=== PATIENT | female | born 1985 | race Caucasian/White ===

== ENCOUNTER 2018-06-03 21:02 | Emergency (ER) | payer BC, OTHER ==
[~2018-06-03] VITALS: Ht 172.7 cm; Wt 83.9 kg
[~2018-06-03 21:02] MED LIST: ADDERALL; CITA-105 PO; CITALOPRAM
[2018-06-03 22:35] LABS: BILIRUBIN,URINE NEGATIVE (NEGATIVE); CLARITY,URINE CLEAR; COLOR,URINE YELLOW; GLUCOSE, URINE (UA) NEGATIVE (NEGATIVE); KETONES,URINE NEGATIVE (NEGATIVE); LEUKOCYTE ESTERASE ,URINE 1+ (NEGATIVE); NITRITE,URINE NEGATIVE (NEGATIVE); PH,URINE 5 (5-9); PROTEIN,URINE 1+ (NEGATIVE); UROBILINOGEN,URINE NORMAL (NORMAL)
[2018-06-03 22:36] LABS: BACTERIA,URINE NEGATIVE /HPF
--- NOTE | 2018-06-03 23:14 | ED Headache ---
General Chief Complaint: Head/Cervical Problems Stated Complaint: HEADACHE Nursing Triage Note: PT AMB TO ROOM #9 W/O DIFFICULTY. A&OX4. C/O FRONTAL LOBE HEADACHE. PT REPORTS HEADACHE BEGAN APPROX 0300 THIS MORNING. REPORTS TO HAVE TAKEN TYELNOL AND IBUPROFEN FOR PAIN WITH NO RELIEF. REPORTS PHOTOPHOBIA AND PRESSURE BEHIND EYES. Nursing Sepsis Screen: No Definite Risk Source: patient, other Exam Limitations: no limitations History of Present Illness Date Seen by Provider: Jun 03, 2018 Time Seen by Provider: 22:57 Initial Comments Patient presents to ER by private conveyance with chief complaint of a frontal headache bilateral throbbing without photophobia or phonophobia. She does not history of migraines but she does have a history of headaches although this one has lasted since about 3 AM. She took some Tylenol this morning and then 600 mg of ibuprofen this afternoon and just was not broke. She's been trying to sleep it off. She does not have any discharge from the nose. Ears fevers chills cough or sore throat diarrhea or abdominal pain. She does have some nausea but no vomiting. She has a IUD. Allergies and Home Medications Allergies Coded Allergies: No Known Drug Allergies (Unverified , 06/03/18) Home Medications Citalopram Hydrobromide 40 Mg Tablet, 40 MG PO DAILY Prescribed by: ROBYN DESIR on 06/18/12 1105 [Adderall] , ?MG BID, (Reported) [Citalopram] , ?MG DAILY, (Reported) Patient Home Medication List Home Medication List Reviewed: Yes Review of Systems Review of Systems Constitutional: No chills, No diaphoresis Eyes: Denies Blindness, Denies Blurred Vision Ears, Nose, Mouth, Throat: denies ear pain, denies ear discharge Respiratory: No cough, No dyspnea on exertion Cardiovascular: No chest pain, No Hx of Intervention Past Tdvjtie-Nmifra-Uiatuy Hx Patient Social History Alcohol Use: Rarely Uses Number of Drinks Today: 2 Alcohol Beverage of Choice: Beer, Vodka Recreational Drug Use: No Smoking Status: Former Smoker Type Used: Cigarettes Former Smoker, Quit: Feb 15, 2014 2nd Hand Smoke Exposure: No Recent Foreign Travel: No Contact w/Someone Who Travel: No Recent Infectious Disease Expo: No Seasonal Allergies Seasonal Allergies: Yes Past Medical History Surgeries: Yes Respiratory: No Cardiac: No Neurological: No Genitourinary: No Gastrointestinal: No Musculoskeletal: No Endocrine: No HEENT: No Cancer: No Psychosocial: Yes ADD/ADHD, Depression Integumentary: No Blood Disorders: No Physical Exam Vital Signs Vital Signs - First Documented 06/03/18 21:48 Temp 98.0 Pulse 79 Resp 16 B/P (MAP) 120/84 (96) Pulse Ox 98 O2 Delivery Room Air Capillary Refill : Less Than 3 Seconds Height, Weight, BMI Height: 5'8.00" Weight: 185lbs. oz. 83.316109ql; BMI Method:Stated General Appearance: WD/WN, no apparent distress HEENT: PERRL/EOMI, normal ENT inspection, TMs normal, pharynx normal Neck: non-tender, full range of motion, supple, normal inspection Cardiovascular: normal peripheral pulses, regular rate, rhythm, no edema Respiratory: no respiratory distress, no accessory muscle use Psychiatric: alert, oriented x 3 Progress/Results/Core Measures Results/Orders Lab Results Laboratory Tests Test 06/03/18 22:23 Range/Units Urine Color YELLOW Urine Clarity CLEAR Urine pH 5 5-9 Urine Specific Sikes 1.020 1.016-1.022 Urine Protein 1+ H NEGATIVE Urine Glucose (UA) NEGATIVE NEGATIVE Urine Ketones NEGATIVE NEGATIVE Urine Nitrite NEGATIVE NEGATIVE Urine Bilirubin NEGATIVE NEGATIVE Urine Urobilinogen NORMAL NORMAL MG/DL Urine Leukocyte Esterase 1+ H NEGATIVE Urine RBC (Auto) 5+ H NEGATIVE Urine RBC 5-10 H /HPF Urine WBC NONE /HPF Urine Squamous Epithelial Cells 10-25 H /HPF Urine Crystals NONE /LPF Urine Bacteria NEGATIVE /HPF Urine Casts NONE /LPF Urine Mucus SMALL H /LPF Urine Culture Indicated NO Urine Test NEGATIVE NEGATIVE My Orders Orders - BRUNO VEGA Ua Culture If Indicated (06/03/18 21:53) Urine Bedside (06/03/18 21:53) Hcg,Qualitative Urine (06/03/18 22:30) Ketorolac Injection (Toradol Injection) (06/03/18 23:15) Acetaminophen Tablet (Tylenol Tablet) (06/03/18 23:15) Prochlorperazine Injection (Compazine In (06/03/18 23:15) Diphenhydramine Tablet (Benadryl Tablet) (06/03/18 23:15) Vital Signs/I&O 06/03/18 21:48 Temp 98.0 Pulse 79 Resp 16 B/P (MAP) 120/84 (96) Pulse Ox 98 O2 Delivery Room Air Blood Pressure Mean: 96 Progress Progress Note : Time: 23:12 Progress Note Toradol, Tylenol, Benadryl, Compazine Departure Impression Primary Impression: Migraine headache Qualified Codes: G43.009 - Migraine without aura, not intractable, without status migrainosus Disposition: 01 HOME, SELF-CARE Condition: Stable Departure-Patient Inst. Decision time for Depature: 23:13 Referrals: NO,LOCAL PHYSICIAN (PCP/Family) Primary Care Physician Patient Instructions: Migraine Headache (DC) Add. Discharge Instructions: Drink lots of fluids. Use Tylenol 1000 mg every 8 hours as needed for headache. Use ibuprofen 800 mg every 8 hours as needed for headache or Naprosyn 2 capsules twice a day as needed. If this is persistent or if you have other concerns follow up with primary care for prevention measures etc. All discharge instructions reviewed with patient and/or family. Voiced understanding. Work/School Note: Work Release Form Date Seen in the Emergency Department: Jun 03, 2018 Return to Work: Jun 04, 2018 Restrictions: No Restrictions BRUNO VEGA Jun 03, 2018 23:14
[2018-06-03] MEDS ORDERED: diphenhydrAMINE 25 MG TAB (BENADRYL) PO ONE (23:15)
[2018-06-03] MEDS ORDERED: PROCHLORPERAZINE 10 MG/2ML INJ (COMPAZINE) IV ONE (23:15)
[2018-06-03] MEDS ORDERED: KETOROLAC 30 MG/ML VIAL IVP ONE (23:15)
[2018-06-03] MEDS ORDERED: ACETAMINOPHEN 500 MG TAB (TYLENOL) PO ONE (23:15)
[2018-06-03 23:25] VITALS: BP 117/56
== END 2018-06-03 23:25 | disposition home or self-care (01) ==
LOC: EDUNIT# 21:02 → ER 21:04
DX: G43.909 Migraine, unspecified, not intractable, without status migrainosus (principal); F90.9 Attention-deficit hyperactivity disorder, unspecified type; F98.8 Other specified behavioral and emotional disorders with onset usually occurring in childhood and adolescence; F32.9 Major depressive disorder, single episode, unspecified; Z97.5 Presence of (intrauterine) contraceptive device; Z87.891 Personal history of nicotine dependence
CPT/HCPCS: 81000; 84703; 96374; 96375